=== PATIENT | male | born 1970 | race Asian ===

== ENCOUNTER 2018-11-03 07:34 | Day surgery (SDC) | payer OTHER ==
[2018-10-29 16:07] VITALS: BMI 25.0
[2018-11-03] MEDS ORDERED: CEFAZOLIN 2 GM/D5W 2 GM/50 ML ML IVPB ONE (07:38)
[2018-11-03] MEDS ORDERED: oxyCODONE HCL 10 MG SUSTAINED ACTING TABLET PO STA (07:38)
--- NOTE | 2018-11-03 07:38 | HP ---
History & Physical Update - History History: No Change - Physical Physical: No Change - Assessment Assessment: No Change - Plan Plan: No Change (no changes since visit on 10/28/18)
[2018-11-03] MEDS ORDERED: oxyCODONE HCL 10 MG SUSTAINED ACTING TABLET ONE (08:14)
[2018-11-03] MEDS ORDERED: ceFAZolin SODIUM 1 GM VIAL ONE (09:50)
[2018-11-03] MEDS ORDERED: SODIUM CHLORIDE 0.9% P/F 10 ML VIAL IJ ONE (09:50)
[2018-11-03] MEDS ORDERED: BUPIVACAINE HCL/PF 0.5% (5MG/ML) 10 ML VIAL ONE (09:51)
[2018-11-03] MEDS ORDERED: MIDAZOLAM HCL 2 MG/2 ML SINGLE DOSE VIAL ONE ×4 (09:53→11:47)
[2018-11-03] MEDS ORDERED: DEXAMETHASONE SOD PHOSPHATE/PF 10 MG/ML SDV ONE (10:51)
[2018-11-03] MEDS ORDERED: BUPIVACAINE HCL/PF (5 MG/ML) 30 ML VIAL IJ ONE (10:51)
[2018-11-03] MEDS ORDERED: LIDOCAINE 1%/EPI 1:100000 (20 ML MULTI DOSE VIAL) ONE (10:53)
[2018-11-03] MEDS ORDERED: THROMBIN (RECOMBINANT) 5,000 UNIT VIAL TP ONE (10:53)
[2018-11-03] MEDS ORDERED: methylPREDNISolone ACET (DEPO) 40 MG/1 ML VIAL ONE (10:53)
[2018-11-03] MEDS ORDERED: LIDOCAINE 1%/EPI 1:100000 (50 ML MULTI DOSE VIAL) INF ONE (11:30)
[2018-11-03] MEDS ORDERED: GELATIN SPONGE,ABSORBABLE 1 GM PACKET TP ONE (12:06)
[2018-11-03] MEDS ORDERED: THROMBIN (BOVINE) 5,000 UNIT VIAL TP ONE (12:06)
[2018-11-03] MEDS ORDERED: methylPREDNISolone ACET (DEPO) 40 MG/1 ML VIAL IM ONE (12:11)
--- NOTE | 2018-11-03 13:09 | OP ---
Operative Note - Note: Operative Date: 11/03/18 Pre-Operative Diagnosis: Lumbar radiculopathy. HNP Operation: L5-S1 laminectomy with partial discectomy Post-Operative Diagnosis: Same as Pre-op Surgeon: Medhat Hernadez Barber Stylist: Marilee Pollock Anesthesiologist/BANKING ANALYST: Steve Veloz Anesthesia: Spinal, Local (block), MAC Specimens Removed: L5-S1 disc herniation Estimated Blood Loss (mls): 20 Fluid Volume Replaced (mls): 300 Operative Report Dictated: Yes
--- NOTE | 2018-11-03 13:09 | SURG ---
Surgery Trimmer Meat Note Trimmer Meat: Marilee Pollock PA-C Date of Service: 11/03/18 Diagnosis: Lumbar radiculopathy, HNP Procedure: L5-S1 laminectomy with partial discectomy I was present for the entirety of the operative procedure. For further detail, please refer to operative report. Visit type - Case Type Case Type: Scheduled - Emergency Emergency Visit: No - New patient This patient is new to me today: Yes Date on this admission: 11/03/18
[2018-11-03] MEDS ORDERED: ONDANSETRON 4 MG/2 ML VIAL IVPUSH PRN (13:32)
[2018-11-03] MEDS ORDERED: oxyCODONE HCL 5 MG TABLET PO PRN (13:32)
[2018-11-03] MEDS ORDERED: LACTATED RINGERS SOLUTION 1,000 ML IV SCH (13:45)
--- NOTE | 2018-11-03 13:48 | OP ---
DATE OF OPERATION: 11/03/2018 PREOPERATIVE DIAGNOSIS: Spinal stenosis L5-S1. POSTOPERATIVE DIAGNOSIS: Spinal stenosis L5-S1. PROCEDURE PERFORMED: Laminectomy L5-S1. SURGEON: Medhat Hernadez MD LAB DIRECTOR: MANDIE Hewitt ESTIMATED BLOOD LOSS: 50 mL. IV FLUIDS: Per Anesthesia. ANESTHESIA: Spinal/TLIP. COMPLICATIONS: There were none. DISPOSITION: The patient was brought to the PACU in stable condition. INDICATIONS FOR SURGERY: The patient is a 48-year-old gentleman who has been suffering from pain from his back down his left leg. X-rays and MRI were completed, which noted that he had spinal stenosis at L5-S1 secondary to a herniated disk. He had gone through an exhaustive course of treatment for this, which included medications, physical therapy as well as injections. Unfortunately, his pain continued to persist despite all this. At this point, risks, benefits, and alternatives were discussed, and the patient consented to surgery. DESCRIPTION OF PROCEDURE: The patient was brought to the operating room by the Anesthesia staff. After appropriate patient identification was performed, spinal anesthesia was given. TLIP block was given. Appropriate anesthetic lines were placed. SCDs were placed on the patient. The patient was able to position himself prone onto the OR table with all areas and bony prominences well padded at this time. Two needles were placed into his back to anay off the L5-S1 segment. X-ray was taken to confirm this was correct. The needle was removed, and 10 mL of lidocaine with epinephrine was injected into his back at this time. His back was prepped and draped in a sterile manner. At this point, a time-out was completed. An incision was made from the top of L5 down to the bottom of S1. Dissection was carried down to the fascia. Fascia was then split open on the left-hand side, and appropriate retractor was then placed in. A spinal needle was placed onto the L5 lamina to anay off the L5-S1 level. X- ray was taken to confirm this was correct. Needle was removed, and the microscope was brought in. Portions of the L5, S1 lamina were removed. Portions of the L5, S1 flavum was removed. The nerve root was mobilized medially. A disk herniation was noted. It was removed at this time. By the end of the procedure, the S1 nerve root appeared to be well decompressed. All bleeding was well controlled at this time. Steroids was placed over the nerve root. FloSeal was placed over that. The fascia was closed with a No. 1 Vicryl suture. The subcutaneous tissue was closed with 2-0 Vicryl suture. The skin was closed with 3-0 Monocryl suture. Dermabond was applied. Steri-Strips were applied. A sterile dressing was applied. The patient was placed supine on the OR bed and brought to the PACU in stable condition. Dunia FERNÁNDEZ/[id number] MTDD
[2018-11-03 13:58] VITALS: TEMP 98
[2018-11-03 15:55] VITALS: PULSE 83
[2018-11-04 09:28] VITALS: BP 128/72
--- NOTE | 2018-11-05 15:52 | PATH ---
Surgical Pathology Report Patient Name: JOSE VALVERDE Med. Rec. #: [id number] /Age/Gender: 1970 (Age: 48) / M Account: [id number] Location: [facility]CLUDES THE [facility] Taken: 11/03/2018 Received: 11/03/2018 Reported: 11/05/2018 Physicians: Medhat Hernadez M.D. Specimen(s) Received L5-S1 DISC Clinical History Spinal stenosis Final Diagnosis L5-S1 DISC, DISCECTOMY: FIBROCARTILAGINOUS TISSUE WITH DEGENERATIVE CHANGE. Electronically Signed Telma Haynes M.D. Gross Description Received in formalin, labeled "L5-S1 disc" are multiple fibrotic and cartilaginous tissue measuring 2 x 2 x 0.3 cm. in aggregate. Rug Sizer sections are submitted in one cassette. JADA/11/04/2018 josie/11/04/2018
== END 2018-11-03 16:05 | disposition home or self-care (01) ==
LOC: FASU 07:34
PROVIDERS: ATTEND Orthopaedic Surgery Orthopaedic Surgery of the Spine
PROC: 01NB0ZZ Release Lumbar Nerve, Open Approach (ICD-10-PCS; principal; 2018-11-03 11:22)
DX: M48.07 Spinal stenosis, lumbosacral region (principal)
CPT/HCPCS: 72100-TC-FY; 76000-TC-FY; 88304-TC; 94760